=== PATIENT | female | born 1980 | race Two or more races ===

== ENCOUNTER 2019-12-02 04:51 | Emergency (ER) | payer OTHER ==
[~2019-12-02] VITALS: Ht 177.8 cm; Wt 88.0 kg
[2019-12-02] MEDS ORDERED: KETOROLAC 30MG/ML VIAL IM ONE (06:30)
[2019-12-02] MEDS ORDERED: HYDROCODONE/ACETAMINOPHEN 5/325MG TABLET PO ONE (07:00)
[2019-12-02] MEDS ORDERED: ONDANSETRON 4MG ODT PO ONE (07:00)
[2019-12-02 07:37] VITALS: BP 116/79
== END 2019-12-02 07:48 | disposition home or self-care (01) ==
LOC: ER 04:51
DX: G43.909 Migraine, unspecified, not intractable, without status migrainosus (principal); F11.10 Opioid abuse, uncomplicated
CPT/HCPCS: 81025; 96372; 99283; J1885; Q0162